=== PATIENT | female | born 1975 | race Caucasian/White ===

== ENCOUNTER 2018-01-03 05:27 | Day surgery (SDC) | payer OTHER ==
[2018-01-01 14:38] LABS: BASOPHILS % (AUTO) 0.2 % (0-1); EOSINOPHILS # (AUTO) 0.1 X10'3 (0-0.9); EOSINOPHILS % (AUTO) 1.9 % (0-6); LYMPHOCYTES # (AUTO) 2.3 X10'3 (1.1-4.8); LYMPHOCYTES % (AUTO) 31.1 % (21-51); MEAN CORPUSCULAR HEMOGLOBIN 30.2 PG (27.0-31.0); MEAN CORPUSCULAR HGB CONC 34.4 % (33.0-36.5); MEAN CORPUSCULAR VOLUME 87.8 FL (78-98); MEAN PLATELET VOLUME 8.2 FL (7.4-10.4); MONOCYTES # (AUTO) 0.5 X10'3 (0-0.9); MONOCYTES % (AUTO) 7.2 % (2-12); NEUTROPHILS # (AUTO) 4.4 X10'3 (1.8-7.7); NEUTROPHILS % (AUTO) 59.6 % (42-75); PRE OP HEMATOCRIT 38.7 % (35.0-45.0); PRE OP HEMOGLOBIN 13.3 g/dL (12.0-16.0); PRE OP PLATELET COUNT 260 X10'3 (140-440); RED BLOOD COUNT 4.41 X10'6 (4.20-5.60); RED CELL DISTRIBUTION WIDTH 13.1 % (11.5-14.5)
[2018-01-01 14:59] LABS: ALBUMIN 3.5 G/DL (3.4-5.0); ALKALINE PHOSPHATASE 102 IU/L (46-116); BLOOD UREA NITROGEN 14 MG/DL (7-18); BUN/CREATININE RATIO 18.4 (6.6-38.0); CHLORIDE 107 MMOL/L (99-107); CREATININE 0.76 MG/DL (0.40-0.90); PRE OP ALT 40 U/L (30-65); PRE OP ANION GAP 9 (8-16); PRE OP AST 29 U/L (10-37); PRE OP BILIRUB, TOTAL 0.3 MG/DL (0.0-1.0); PRE OP GLUCOSE 92 MG/DL (70-104); PRE OP SODIUM 144 MMOL/L (135-145); TOTAL PROTEIN 7.1 G/DL (6.4-8.2); eGFR 83 ML/MIN
[2018-01-01 15:06] LABS: HCG SERUM QL NEGATIVE
[~2018-01-03] VITALS: Ht 160 cm; Wt 70.9 kg
[2018-01-03] VITALS (14 sets, daily range): BP systolic 95–112; BP diastolic 63–78
[~2018-01-03 05:27] MED LIST: IBUP-1984 PO; LIDO700A47 TOP; ringers solution, lacted 1,000 ML IV SCH
[2018-01-03] MEDS ORDERED: ceFAZolin inj. 2,000 MG in normal saline 100ml IV soln 100 ML IV ONE (05:30)
[2018-01-03] MEDS ORDERED: famotidine 20mg tablet PO ONE (05:30)
[2018-01-03] MEDS ORDERED: LIDOcaine 1% (10mg/ml) 2ml vial ONE (06:11)
[2018-01-03] MEDS ORDERED: sevoflurane 250ml liquid IH ONE (08:36)
[2018-01-03] MEDS ORDERED: ondansetron/PF 4mg/2ml inj ONE (08:36)
[2018-01-03] MEDS ORDERED: fentaNYL/PF 50MCG/1 ML 2ML syringe ONE (08:42)
[2018-01-03] MEDS ORDERED: MIDAZolam 5mg/5ml vial ONE (08:42)
[2018-01-03] MEDS ORDERED: dexamethasone sod phosphate 4mg/ml inj. ONE (09:22)
[2018-01-03] MEDS ORDERED: ROPIVAcaine 0.5% (5mg/ml) 30ml vial ONE (09:22)
[2018-01-03] MEDS ORDERED: propofol inj 20 ML IV ONE (09:22)
[2018-01-03] MEDS ORDERED: LIDOcaine 2% (20mg/ml) 5ml vial ONE (09:22)
[2018-01-03] MEDS ORDERED: ringers solution, lacted 1,000 ML IV SCH (09:41)
[2018-01-03] MEDS ORDERED: morphine 4 MG/ML inj SYRINge IV PRN ×2 (09:45)
[2018-01-03] MEDS ORDERED: proCHLORperazine 10 MG/2 ml inj IV PRN (09:45)
[2018-01-03] MEDS ORDERED: meperidine/PF 25mg/ml syringe IV PRN ×3 (09:45)
[2018-01-03] MEDS ORDERED: ondansetron/PF 4mg/2ml inj IV PRN (09:45)
== END 2018-01-03 13:00 | disposition home or self-care (01) ==
LOC: PAS 05:27
PROVIDERS: ATTEND Orthopaedic Surgery
DX: M75.111 Incomplete rotator cuff tear or rupture of right shoulder, not specified as traumatic (principal); M24.111 Other articular cartilage disorders, right shoulder; M75.51 Bursitis of right shoulder; G89.29 Other chronic pain; M25.711 Osteophyte, right shoulder; M65.811 Other synovitis and tenosynovitis, right shoulder; Z88.6 Allergy status to analgesic agent; Z79.1 Long term (current) use of non-steroidal anti-inflammatories (NSAID); Z79.891 Long term (current) use of opiate analgesic; Z79.899 Other long term (current) drug therapy; Z98.890 Other specified postprocedural states
CPT/HCPCS: 29823; 29826; 29827; 36415; 80053; 84703; 85025; A4565; A6449; C1713; J0690; J1100; J2001; J2250; J2405; J2704; J2795; J3010; J3490; J7030; J7120; A7000